=== PATIENT | male | born 1970 | race Caucasian/White ===

== ENCOUNTER 2020-05-30 17:46 | Emergency (ER) | payer BC ==
[2020-05-30 17:58] VITALS: BP 156/88; PULSE 63
--- NOTE | 2020-05-30 18:21 | EDM.PDOC ---
ED HPI GENERAL MEDICAL PROBLEM - General Chief Complaint: ENT Problem Stated Complaint: TOOTH PAIN Time Seen by Provider: 05/30/20 18:01 Source of Information: Reports: Patient History Limitations: Reports: No Limitations - History of Present Illness INITIAL COMMENTS - FREE TEXT/NARRATIVE: 50-year-old male presents to the emergency department with complaints of dental pain to the left top fourth tooth. Patient states that yesterday he was eating and bit down and the tooth bent sideways. Of note patient is missing numerous teeth and does have dental caries to remaining teeth. Patient states that today the pain became so significant he finally grabbed the tooth and reinserted it into his gums. He states that since he has been having a significant amount of pain. Denies any fever or chills. Onset: Gradual Left Upper Oral/Mouth Pain Score (Numeric/FACES): 10 - Related Data Allergies Allergy/AdvReac Type Severity Reaction Status Date / Time No Known Allergies Allergy Verified 05/30/20 17:58 Home Meds: Home Meds Clindamycin HCl 300 mg PO QID #28 capsule 05/30/20 [Rx] oxyCODONE HCl/Acetaminophen [Percocet 5-325 mg Tablet] 1 each PO Q6H PRN #10 tablet 05/30/20 [Rx] Past Medical History - Past Health History Medical/Surgical History: Denies Medical/Surgical History Cardiovascular History: Reports: Heart Murmur, Hypertension - Past Surgical History Musculoskeletal Surgical History: Reports: Carpal Tunnel, Shoulder Surgery Social & Family History - Family History Family Medical History: No Pertinent Family History - Tobacco Use Tobacco Use Status *Q: Current Every Day Tobacco User Years of Tobacco use: 30 Packs/Tins Daily: 1 - Caffeine Use Caffeine Use: Reports: None - Recreational Drug Use Recreational Drug Use: No ED ROS ENT - Review of Systems Review Of Systems: Comprehensive ROS is negative, except as noted in HPI. ED EXAM, ENT - Physical Exam Exam: See Below Exam Limited By: No Limitations General Appearance: Alert, WD/WN, Mild Distress Ears: Hearing Grossly Normal Nose: Normal Inspection Mouth/Throat: Normal Lips, Dental Abcess (Tooth #12), Dental Pain, Dental Tenderness (1212) Head: Atraumatic, Normocephalic Neck: Normal Inspection, Supple, Non-Tender, Full Range of Motion Psychiatric: Normal Affect, Normal Mood Skin: Warm, Dry, Intact, Normal Color, No Rash Lymphatic: No Adenopathy Course - Vital Signs Text/Narrative:: 50-year-old male presents with dental pain to the #12 tooth. This started yesterday when he bit down and the tooth bent sideways. Of note patient does have significant dental caries noted to this tooth. Patient also has erythema and edema noted to the gums just above the tooth. Patient states that for the past couple of weeks he has had a foul taste draining from the tooth. He denies any fever or chills. Patient will be discharged home with a prescription for clindamycin 300 mg 4 times daily and Percocet 1 tab every 6 hours as needed for severe pain. Recommend that he follow-up with a dentist as soon as possible to have the tooth extracted. Last Recorded V/S: Last Vital Signs Temp 99.9 F 05/30/20 17:54 Pulse 63 05/30/20 17:54 Resp 16 05/30/20 17:54 BP 156/88 H 05/30/20 17:54 Pulse Ox 97 05/30/20 17:54 Departure - Departure Time of Disposition: 18:15 Disposition: Home, Self-Care 01 Condition: Good Clinical Impression: Dental abscess - Discharge Information Prescriptions: Clindamycin HCl 300 mg PO QID #28 capsule oxyCODONE HCl/Acetaminophen [Percocet 5-325 mg Tablet] 1 each PO Q6H PRN #10 tablet PRN Reason: Pain (Moderate 4-6) Instructions: Dental Abscess, [id number] Referrals: PCP,None [Primary Care Provider] - Forms: ED Department Discharge Additional Instructions: Were seen in the emergency department today with complaints of pain and foul drainage from your top fourth tooth on the left side. You stated that this started yesterday when you bit down on something. You also stated that your pain to your tooth is mobile. You do have a dental abscess and you will likely need to have that tooth removed. I have sent a prescription for antibiotics called clindamycin. You will need to take 1 tablet 4 times daily until gone. I have also sent prescription for pain medication called Percocet. This is a narcotic. Keep in mind that you should not be driving or operating machinery or drinking alcohol while taking this medication. You may take this medication every 6 hours as needed for more severe pain is not relieved by ibuprofen. Be aware that it may take 48 to 72 hours for you to notice a difference from the antibiotics. Sepsis Event Note (ED) - Evaluation Sepsis Screening Result: No Definite Risk - Focused Exam Vital Signs: Vital Signs Temp Pulse Resp BP Pulse Ox 05/30/20 17:54 99.9 F 63 16 156/88 H 97
== END 2020-05-30 18:30 | disposition home or self-care (01) ==
LOC: JD.ED 17:46
DX: K04.7 Periapical abscess without sinus (principal); I10 Essential (primary) hypertension; Z72.0 Tobacco use
CPT/HCPCS: 99282; 99283

== ENCOUNTER 2021-01-29 15:00 | Emergency (ER) | payer SELFPAY ==
[2021-01-29 15:10] VITALS: BP 174/111; PULSE 73
--- NOTE | 2021-01-29 15:11 | EDM.PDOC ---
ED HPI GENERAL MEDICAL PROBLEM - General Chief Complaint: ENT Problem Stated Complaint: tooth pain Time Seen by Provider: 01/29/21 15:11 Source of Information: Reports: Patient History Limitations: Reports: No Limitations - History of Present Illness INITIAL COMMENTS - FREE TEXT/NARRATIVE: 51-year-old male presents to the ED for evaluation of swelling over his right face along his mandible secondary to dental infection. Patient has multiple bad teeth and about every 6 months he is able to afford having 2 teeth extracted. 2 days ago he developed right lower mandibular pain which is only gradually worsened. Minimal relief with Motrin and Tylenol.. He is appreciated right facial swelling and some swelling in his upper neck and throat upon awakening this morning. He therefore elected to come to the ED for evaluation. He was not aware of any fever or chills although he feels warm to palpation. Onset: Sudden Onset Date: 01/28/21 (trip rider) Duration: Hour(s):, Getting Worse Location: Reports: Face (Right facial swelling along the mandible or jaw. Dental pain coming from right lower molar teeth.) Quality: Reports: Ache, Throbbing, Other Severity: Moderate (Pulsating 7-8 out of 10) Improves with: Reports: None (Tylenol and Motrin have not been helping the pain much.) Worsens with: Reports: Other (Really unable to eat or drink much) Context: Denies: Activity, Exercise, Sick Contact, Trauma, Other Associated Symptoms: Reports: Loss of Appetite, Malaise, Other. 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: Acetaminophen, NSAIDS (Motrin) Right Oral/Mouth Pain Score (Numeric/FACES): 7 - Related Data Allergies Allergy/AdvReac Type Severity Reaction Status Date / Time No Known Allergies Allergy Verified 01/29/21 15:10 Home Meds: Home Meds Amoxicillin/Clavulanate K [Augmentin 500-125 MG] 1 tab PO BID #20 tablet 01/29/21 [Rx] Hydrocodone/Acetaminophen [HYDROcodone-Acetaminophen 5-325 MG] 1 - 2 each PO Q4H PRN #15 tab 01/29/21 [Rx] Past Medical History - Past Health History Medical/Surgical History: Denies Medical/Surgical History Cardiovascular History: Reports: Heart Murmur, Hypertension - Past Surgical History Musculoskeletal Surgical History: Reports: Carpal Tunnel, Shoulder Surgery Social & Family History - Family History Family Medical History: No Pertinent Family History - Caffeine Use Caffeine Use: Reports: None - Living Situation & Occupation Living situation: Reports: Single Occupation: Employed ED ROS ENT - Review of Systems Review Of Systems: See Below Constitutional: Reports: Fever, Decreased Appetite (Due to dental pain). Denies: Chills, Malaise, Weakness, Fatigue, Weight Loss HEENT: Reports: Dental Pain (Right lower molar teeth are causing a good deal of pain with associated swelling over the mandible) Respiratory: Reports: No Symptoms Cardiovascular: Reports: No Symptoms Endocrine: Reports: Fatigue GI/Abdominal: Reports: No Symptoms : Reports: Frequency, Other Musculoskeletal: Reports: Back Pain (Dysuria x1.) Skin: Reports: No Symptoms Neurological: Reports: No Symptoms Psychiatric: Reports: No Symptoms Hematologic/Lymphatic: Reports: No Symptoms Immunologic: Reports: No Symptoms ED EXAM, ENT - Physical Exam Exam: See Below Exam Limited By: No Limitations General Appearance: Alert, WD/WN, Mild Distress, Other (Although he rarely sees a physician and could have primary hypertension temperature is 36.4 with a heart rate of 73 and sinus respiratory is 18 with O2 sats 100% room air. BP elevated 174 111 presumably due to pain response) Eye Exam: Bilateral Eye: Normal Inspection, PERRL Mouth/Throat: Dental Pain (Patient has badly decayed multiple teeth particular all of his molars. On the right side it appears the first molar tooth is actively causing current pain syndrome as the gingiva is eroded almost down to the apex of the), Gum Swelling (Gingival swelling adjacent to the right lower first and second molar teeth.), Other (Associated swelling over his right lateral mandible which is moderately tender to touch.). No: Hoarse Voice, Lip Swelling, Lip Ulcers, Muffled Voice Head: Atraumatic, Normocephalic Neck: Normal Inspection, Supple, Non-Tender, Full Range of Motion, Other (Although he reports a subjective feeling of swelling of his anterior). No: Lymphadenopathy (L), Lymphadenopathy (R) Respiratory/Chest: No Respiratory Distress ( neck I could not appreciate any swelling or lymphadenopathy.), Lungs Clear, Normal Breath Sounds, No Accessory Muscle Use Cardiovascular: Normal Peripheral Pulses, Regular Rate, Rhythm, No Edema, No Gallop, No Rub, Systolic Murmur (He has a very faint systolic ejection murmur that is not holosystolic best heard at the left lower sternal border I would rated at less than 1 out of 6.) GI/Abdominal: Normal Bowel Sounds, Soft, Non-Tender, No Organomegaly, No Distention, No Abnormal Bruit Skin: Warm, Dry, Intact, Normal Color, No Rash Course - Vital Signs Last Recorded V/S: Last Vital Signs Temp 36.4 C 01/29/21 15:09 Pulse 73 01/29/21 15:09 Resp 18 01/29/21 15:09 BP 174/111 H 01/29/21 15:09 Pulse Ox 100 01/29/21 15:09 - Orders/Labs/Meds Orders: Active Orders 24 hr Category Date Time Status Peripheral IV Care [RC] . DIRECTED Care 01/29/21 15:24 Active Ketorolac [Toradol] Med 01/29/21 15:30 Active 30 mg IVPUSH ONETIME Sodium Chloride 0.9% [Saline Flush] Med 01/29/21 15:23 Active 10 ml FLUSH ASDIRECTED PRN Peripheral IV Insertion Adult [OM.PC] Stat Oth 01/29/21 15:24 Ordered Medication Orders Ketorolac Tromethamine (Ketorolac 30 Mg/Ml Sdv) 30 mg IVPUSH ONETIME LORRIE Last Admin: 01/29/21 15:38 Dose: 30 mg Documented by: CARLOS Sodium Chloride (Sodium Chloride 0.9% 10 Ml Syringe) 10 ml FLUSH ASDIRECTED PRN PRN Reason: Keep Vein Open Last Admin: 01/29/21 15:38 Dose: 10 ml Documented by: CARLOS Meds: Medications Generic Name Dose Route Start Last Admin Trade Name Freq PRN Reason Stop Dose Admin Ketorolac Tromethamine 30 mg 01/29/21 15:30 01/29/21 15:38 Ketorolac 30 Mg/Ml Sdv IVPUSH 30 mg ONETIME LORRIE Administration Sodium Chloride 10 ml 01/29/21 15:23 01/29/21 15:38 Sodium Chloride 0.9% 10 Ml Syringe FLUSH 10 ml ASDIRECTED PRN Administration Keep Vein Open Discontinued Medications Generic Name Dose Route Start Last Admin Trade Name Freq PRN Reason Stop Dose Admin Ceftriaxone Sodium 2 gm/ 100 mls @ 200 mls/hr 01/29/21 15:24 01/29/21 15:38 Sodium Chloride IV 01/29/21 15:53 200 mls/hr ONETIME ONE Administration - Radiology Interpretation Free Text/Narrative:: 51-year-old male presents to the ED with dental infection was secondary spread to the buccal mucosa overlying the right lateral mandible. He has been getting about 2 teeth removed every 6 months due to cost. He has multiple bad teeth. Currently for second lower right molar tooth appears to be the culprit to think in terms of causing pain and dental abscess. Due to the swelling over his mandible I will give him Rocephin 2 g IV and Toradol 30 mg IV for pain relief. 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 Plan will be to discharge him on antibiotic Augmentin 500 mg twice daily for the next 10 days and hydrocodone 5/325 mg tabs 1 or 2 every 4-6 hours as necessary for pain relief for the next few days until the antibiotics become effective. He has plans to follow-up with a dentist on third week of February. Departure - Departure Time of Disposition: 16:29 Disposition: Home, Self-Care 01 Condition: Fair Clinical Impression: Dental abscess, Dental caries extending into dentin - Discharge Information *PRESCRIPTION DRUG MONITORING PROGRAM REVIEWED*: Not Applicable *COPY OF PRESCRIPTION DRUG MONITORING REPORT IN PATIENT CRISTIAN: Not Applicable Prescriptions: Amoxicillin/Clavulanate K [Augmentin 500-125 MG] 1 tab PO BID #20 tablet Hydrocodone/Acetaminophen [HYDROcodone-Acetaminophen 5-325 MG] 1 - 2 each PO Q4H PRN #15 tab PRN Reason: Dental pain Referrals: PCP,None [Primary Care Provider] - Forms: ED Department Discharge Additional Instructions: Evaluation in the emergency room today in regards to dental infection which is actually a dental abscess with subsequent spread of infection to the soft tissues over the right jaw and upper neck. You were therefore treated with dose of antibiotic Rocephin 2 g intravenously which will start working in the next few hours. You will need to take oral antibiotic Augmentin 500/1 2 5 mg tablet twice daily for the next 10 days with the first tablet due tomorrow morning. Suggest pain medication hydrocodone tablets 5/325 mg strength 1 or 2 every 4-6 hours necessary for pain relief until the antibiotics become effective over the next couple of days. You may also continue Motrin 600 mg every 6 hours as needed to reduce pain and inflammation. Expect marked improvement over the next 48 to 72 hours. Return to medical care sooner if you feel your face is becoming more swollen in spite of antibiotic treatment. Follow-up with dentist as planned. Sepsis Event Note (ED) - Focused Exam Vital Signs: Vital Signs Temp Pulse Resp BP Pulse Ox 01/29/21 15:09 36.4 C 73 18 174/111 H 100 - My Orders Last 24 Hours: My Active Orders 01/29/21 15:23 Sodium Chloride 0.9% [Saline Flush] 10 ml FLUSH ASDIRECTED PRN 01/29/21 15:24 Peripheral IV Care [RC] . DIRECTED Peripheral IV Insertion Adult [OM.PC] Stat 01/29/21 15:30 Ketorolac [Toradol] 30 mg IVPUSH ONETIME - Assessment/Plan Last 24 Hours: My Active Orders 01/29/21 15:23 Sodium Chloride 0.9% [Saline Flush] 10 ml FLUSH ASDIRECTED PRN 01/29/21 15:24 Peripheral IV Care [RC] . DIRECTED Peripheral IV Insertion Adult [OM.PC] Stat 01/29/21 15:30 Ketorolac [Toradol] 30 mg IVPUSH ONETIME
[2021-01-29] MEDS ORDERED: Sodium Chloride 0.9% 10 ML Syringe FLUSH PRN (15:23)
[2021-01-29] MEDS ORDERED: cefTRIAXone 2 GM in Sodium Chloride 0.9% 100 ML IV ONE (15:24)
[2021-01-29] MEDS ORDERED: Ketorolac 30 MG/ML SDV IVPUSH SCH (15:30)
== END 2021-01-29 16:30 | disposition home or self-care (01) ==
LOC: JD.ED 15:00
DX: K04.7 Periapical abscess without sinus (principal); K02.9 Dental caries, unspecified; K00.7 Teething syndrome; I10 Essential (primary) hypertension
CPT/HCPCS: 96365; 96375; 99283; J0696; J1885

== ENCOUNTER 2021-04-14 17:45 | Emergency (ER) | payer BC ==
[2021-04-14 18:50] LABS: CORONAVIRUS COVID-19 NAA POSITIVE (NEGATIVE)
[2021-04-14 19:45] VITALS: BP 113/94; PULSE 87
== END 2021-04-14 19:41 | disposition home or self-care (01) ==
LOC: JD.ED 17:45
DX: U07.1 COVID-19 (principal); I10 Essential (primary) hypertension; Z72.0 Tobacco use
CPT/HCPCS: 0240U; 71045; 99283

== ENCOUNTER 2023-02-02 13:46 | Emergency (ER) | payer BC ==
[2023-02-02] MEDS ORDERED: Ketorolac 30 MG/ML SDV IVPUSH SCH (14:15)
[2023-02-02] MEDS ORDERED: Sodium Chloride 0.9% 1,000 ML IV SCH (14:15)
[2023-02-02 14:31] LABS: BASOPHILS ABSOLUTE AUTO 0.1 K/mm3 (0.0-0.2); BASOPHILS PERCENT AUTO 1.3 % (0.0-1.0); EOSINOPHILS ABSOLUTE AUTO 0.2 K/mm3 (0.0-0.4); EOSINOPHILS PERCENT AUTO 1.5 % (0.0-6.0); HEMATOCRIT 44.7 % (42.0-52.0); HEMOGLOBIN 15.6 gm/dl (14.0-18.0); IMMATURE GRAN ABSOLUTE AUTO 0.02 K/mm3 (0.00-0.05); IMMATURE GRAN PERCENT AUTO 0.2 % (0.0-0.4); LYMPHOCYTES ABSOLUTE AUTO 3.7 K/mm3 (1.0-4.8); LYMPHOCYTES PERCENT AUTO 36.1 % (24.0-44.0); MEAN CORPUSCULAR HEMOGLOBIN 32.5 pg (28.0-32.0); MEAN CORPUSCULAR HGB CONC 34.9 g/dl (32.0-36.0); MEAN CORPUSCULAR VOLUME 93.1 fl (83.0-99.0); MEAN PLATELET VOLUME 9.6 fl (9.4-12.4); MONOCYTES ABSOLUTE AUTO 0.7 K/mm3 (0.0-0.8); MONOCYTES PERCENT AUTO 6.6 % (0.0-8.0); NEUTROPHILS ABSOLUTE AUTO 5.6 K/mm3 (1.8-7.7); NEUTROPHILS PERCENT AUTO 54.3 % (41.0-71.0); PLATELET COUNT,PLT 242 K/mm3 (150-400); WHITE BLOOD CELL COUNT,WBC 10.31 K/mm3 (3.9-11.3)
[2023-02-02 15:06] LABS: A/G RATIO 1.1 (1-2); ALANINE AMINOTRANSFERASE,ALT 21 U/L (16-63); ALBUMIN 3.9 g/dl (3.4-5.0); ALKALINE PHOSPHATASE 58 U/L (46-116); ANION GAP 15.8 (5-15); ASPARTATE AMNIOTRANSFERASE,AST 15 U/L (15-37); BILIRUBIN TOTAL 0.3 mg/dL (0.2-1.0); BLOOD UREA NITROGEN,BUN 8 mg/dL (7-18); C-REACTIVE PROTEIN <0.2 mg/dL (<1.0); CALCIUM 9.4 mg/dL (8.5-10.1); CARBON DIOXIDE,CO2 26 mEq/L (21-32); CHLORIDE,CL 105 mEq/L (98-107); EST CRCL DRUG DOSING (CG) 86.23 mL/min; ESTIMATED GFR 91 mL/min (>60); GLUCOSE RANDOM 99 mg/dL (70-99); MAGNESIUM 1.9 mg/dL (1.8-2.4); PROTEIN TOTAL,TP 7.6 g/dl (6.4-8.2); SODIUM,NA 143 mEq/L (136-145); TROPONIN I HIGH SENSITIVITY 4 pg/mL (<=76)
[2023-02-02 15:15] LABS: POTASSIUM,K 3.8 mEq/L (3.5-5.1)
[2023-02-02 16:35] VITALS: BP 132/97; PULSE 59
== END 2023-02-02 16:30 | disposition home or self-care (01) ==
LOC: JD.ED 13:46
DX: R07.89 Other chest pain (principal); M79.622 Pain in left upper arm; I10 Essential (primary) hypertension; F17.210 Nicotine dependence, cigarettes, uncomplicated; Z79.899 Other long term (current) drug therapy; Z91.048 Other nonmedicinal substance allergy status
CPT/HCPCS: 36415; 71045; 80053; 83735; 83880; 84484; 85025; 86140; 96374; 99285; J1885; J7030; 93005